=== PATIENT | male | born 1985 | race Caucasian/White ===

== ENCOUNTER 2020-10-18 11:22 | Outpatient (REF) | payer MEDICAID, SELFPAY ==
--- NOTE | ~2020-10-18 | XR_ITS ---
EXAMINATION: XR FOOT, RIGHT XR FOOT, LEFT CLINICAL INFORMATION: Pain. COMPARISON: None. TECHNIQUE: AP, oblique, and lateral views of the right and left foot. FINDINGS: Right Foot: First metatarsophalangeal joint space narrowing with small marginal osteophytes. No osseous erosion. No abnormal soft tissue calcification. No fracture or dislocation. Left foot: First metatarsophalangeal joint space narrowing with marginal osteophytes. No osseous erosion. No abnormal soft tissue calcification. No fracture or dislocation. XR/XR foot LT min 3V IMPRESSION: RIGHT FOOT: First metatarsophalangeal osteoarthritis. LEFT FOOT: First metatarsophalangeal osteoarthritis.
--- NOTE | ~2020-10-18 | XR_ITS ---
EXAMINATION: XR FOOT, RIGHT XR FOOT, LEFT CLINICAL INFORMATION: Pain. COMPARISON: None. TECHNIQUE: AP, oblique, and lateral views of the right and left foot. FINDINGS: Right Foot: First metatarsophalangeal joint space narrowing with small marginal osteophytes. No osseous erosion. No abnormal soft tissue calcification. No fracture or dislocation. Left foot: First metatarsophalangeal joint space narrowing with marginal osteophytes. No osseous erosion. No abnormal soft tissue calcification. No fracture or dislocation. XR/XR foot RT min 3V IMPRESSION: RIGHT FOOT: First metatarsophalangeal osteoarthritis. LEFT FOOT: First metatarsophalangeal osteoarthritis.
== END 2020-10-18 11:23 | disposition home or self-care (01) ==
LOC: HO.XRAY 11:22
PROVIDERS: PCP Nurse Practitioner Family; Visit Provider Nurse Practitioner Family
DX: M79.671 Pain in right foot (principal); M79.672 Pain in left foot
CPT/HCPCS: 73630